=== PATIENT | male | born 1985 | race African-American/Black ===

== ENCOUNTER 2018-10-23 23:24 | Emergency (ER) | payer MEDICAID ==
[~2018-10-23] VITALS: Ht 175.3 cm; Wt 78.0 kg
[2018-10-24] MEDS ORDERED: IBUPROFEN 600MG TABLET PO STA (02:02)
[2018-10-24] MEDS ORDERED: ALBUTEROL (0.083%) 2.5MG/3ML NEB HHN STA (02:02)
[2018-10-24] MEDS ORDERED: IPRATROPIUM BROMIDE (0.02%) 0.5MG/2.5ML NEB HHN STA (02:02)
[2018-10-24 03:45] VITALS: BP 114/68
== END 2018-10-24 03:57 | disposition home or self-care (01) ==
LOC: ER 23:24
DX: J06.9 Acute upper respiratory infection, unspecified (principal); M60.9 Myositis, unspecified; J45.909 Unspecified asthma, uncomplicated; F12.90 Cannabis use, unspecified, uncomplicated
CPT/HCPCS: 94640; 99283; J7611